=== PATIENT | male | born 2005 | race Caucasian/White ===

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

== ENCOUNTER 2024-05-25 12:19 | Emergency (ER) | payer BC ==
[~2024-05-25] VITALS: Ht 185.4 cm; Wt 98.2 kg
[~2024-05-25 12:19] MED LIST changes: +HYDROXYZINE HCL10 MG PO; +ONDANSETRON ODT8 MG PO; +TRAMADOL HCL50 MG PO
--- OUTSIDE RECORDS SUMMARY | 2024-05-25 12:26 | XMS ---
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 Ramon VISIT COUNT (12 MO.) 2 [facility] TOTAL 2 NOTE: Visits indicate total known visits. ED/C VISIT TRACKING (12 MO.) 05/25/2024 12:[address] [facility] [place] TYPE: Emergency COMPLAINT: - LT ANKLE PAIN 05/18/2024 12:[address] [facility] [place] TYPE: Emergency COMPLAINT: - LT ANKLE INJURY DIAGNOSES: - Overexertion from prolonged static or awkward postures, initial encounter - Sprain of unspecified ligament of left ankle, initial encounter INPATIENT VISIT TRACKING (12 MO.) No inpatient visits to display in this time frame [id number]
[2024-05-25 17:30] VITALS: BP 128/58
== END 2024-05-25 17:30 | disposition home or self-care (01) ==
LOC: ED 12:19
DX: S93.402A Sprain of unspecified ligament of left ankle, initial encounter (principal); X50.1XXA Overexertion from prolonged static or awkward postures, initial encounter
CPT/HCPCS: 73610; 99283